=== PATIENT | female | born 1940 | race Caucasian/White ===

== ENCOUNTER 2019-02-21 11:35 | Inpatient (IN) ==
[2019-02-21 12:33] LABS: Basophils # (auto) 0.01 K/uL (0-0.2); Basophils % (auto) 0.2 %; Eosinophils # (auto) 0.07 K/uL (0-0.5); Eosinophils % (auto) 1.1 %; Hematocrit (blood only) 34.2 % (37-47); Hemoglobin 10.7 g/dL (12.0-16.0); Immature Granulocytes # (auto) 0.01 K/uL (0.00-0.02); Immature Granulocytes % (auto) 0.2 %; Lymphocytes # (auto) 1.97 K/uL (1.2-3.4); Lymphocytes % (auto) 30.8 %; Mean Corpuscular Hemoglobin 31.2 pg (25-34); Mean Corpuscular Hgb Conc 31.3 g/dL (32-36); Mean Corpuscular Volume 99.7 fL (80-100); Mean Platelet Volume 10.3 fL (7.4-10.4); Monocytes # (auto) 0.76 K/uL (0.11-0.59); Monocytes % (auto) 11.9 %; Neutrophils # (auto) 3.58 K/uL (1.4-6.5); Neutrophils % (auto) 55.8 %; Platelet Count 208 K/uL (130-400); RDW Coefficient of Variation 14.7 % (11.5-14.5); RDW Standard Deviation 53.3 fL (36.4-46.3); Red Blood Count 3.43 M/uL (4.2-5.4)
[2019-02-21 12:56] LABS: Alanine Aminotransferase 18 U/L (12-78); Albumin Globulin Ratio 0.8 (0.9-2); Albumin Level 3.1 gm/dl (3.4-5.0); Alkaline Phosphatase 98 U/L (45-117); Aspartate Aminotransferase 14 U/L (15-37); BUN Creatinine Ratio 26.8 (10-20); Bilirubin,Total 0.2 mg/dl (0.2-1); Blood Urea Nitrogen 45 mg/dl (7-18); Calcium 8.7 mg/dl (8.5-10.1); Carbon Dioxide 28 mmol/L (21-32); Chloride 103 mmol/L (98-107); Est GFR (African American) 33.9; Est GFR (Non-African American) 29.2; Glucose 142 mg/dl (70-99); Potassium 6.2 mmol/L (3.5-5.1); Sodium 134 mmol/L (136-145); Total Protein 7.1 gm/dl (6.4-8.2)
[2019-02-21] MEDS ORDERED: SODIUM CHLORIDE 0.9% 1000ML 1,000 ML IV SCH (13:11)
--- NOTE | 2019-02-21 13:49 | Emergency Department Note ---
History of Present Illness General Chief complaint: Leg Weakness, Bilateral Stated complaint: SWELLING AND PAIN IN BOTH LEGS Time Seen by Provider: 02/21/19 12:31 History of Present Illness Maximum Pain Intensity: 9 Home Medications Home Medications Medication Instructions Recorded Confirmed Type metformin 1,000 mg PO BID 07/27/18 02/21/19 History enalapril maleate 10 mg tablet 10 mg PO DAILY 09/21/18 02/21/19 History clopidogrel 75 mg tablet 75 mg PO DAILY 09/22/18 02/21/19 History omeprazole 20 mg delayed 20 mg PO DAILY PRN tab 09/22/18 02/21/19 History release,disintegrating tablet lisinopril 5 mg PO DAILY 10/27/18 02/21/19 History tramadol 50 mg PO Q4H PRN 10/27/18 02/21/19 History alprazolam 0.5 mg tablet,extended 0.5 mg PO HS 12/23/18 02/21/19 History release 24 hr quetiapine 25 mg tablet 25 mg PO HS 12/23/18 02/21/19 History rivastigmine tartrate 1.5 mg 1.5 mg PO BID 12/23/18 02/21/19 History capsule lidocaine 1 patch TOP DAILY #30 ea 01/28/19 02/21/19 Rx gabapentin 300 mg PO BID 02/21/19 02/21/19 History gabapentin 400 mg PO BID 02/21/19 02/21/19 History Allergies Allergy/AdvReac Type Severity Reaction Status Date / Time No Known Drug Allergies Allergy Unknown Verified 02/21/19 13:17 Past Med/Surg History Medical History (Updated 02/12/19 @ 00:04 by Carmina Liu) CVA (cerebral vascular accident) (Resolved) Diabetes Diabetic neuropathy (Chronic) GERD (gastroesophageal reflux disease) H/O: stroke (Resolved) Hyperlipemia Hypertension No pertinent family history Surgical History History of cholecystectomy History of hysterectomy History of lumbar surgery Social History Preferred Language: Liberian Communication Ability: Effective Visual Impairment: No Limitations Hearing Ability: Normal Feels Safe at Home: Yes Smoking Status: Never smoker Hx Alcohol Use: No Physical Exam Vital Signs Vital Signs - 24 hr 02/21/19 11:46 02/21/19 12:31 Temperature 36.9 C Temperature Source Oral Pulse Rate 54 L Pulse Rate [Apical] 54 L Pulse Rhythm [Apical] Regular Pulse Strength [Apical] Normal Respiratory Rate 16 16 Respiratory Effort / Characteristics Non-Labored Spontaneous Respiratory Depth Normal Respiratory Pattern Regular Blood Pressure 121/52 L Blood Pressure [Left Arm] 117/62 Blood Pressure Mean 75 Blood Pressure Mean [Left Arm] 80 Blood Pressure Position [Left Arm] Lying Pulse Oximetry 97 97 Oxygen Delivery Method Room Air Room Air Sepsis Recent Fever Within 48 Hours No Sepsis New/Unexplained Change in Mental Status No Sepsis Action Taken by Nursing No Action Required Course Administered Medications Sodium Chloride (Nss 1000ml) 1,000 mls @ 999 mls/hr IV .Q1H1M HARDIK Stop: 02/21/19 14:11 Last Admin: 02/21/19 13:21 Dose: 999 mls/hr Documented by: [id number] Medical Decision Making Laboratory Data Result diagrams: 02/21/19 12:25 02/21/19 12:25 Lab Results 02/21/19 02/21/19 Range/Units 12:25 12:25 WBC 6.40 (4.8-10.8) K/uL RBC 3.43 L (4.2-5.4) M/uL Hgb 10.7 L (12.0-16.0) g/dL Hct 34.2 L (37-47) % MCV 99.7 (80-100) fL MCH 31.2 (25-34) pg MCHC 31.3 L (32-36) g/dL RDW Std Deviation 53.3 H (36.4-46.3) fL RDW Coeff of Loy 14.7 H (11.5-14.5) % Plt Count 208 (130-400) K/uL MPV 10.3 (7.4-10.4) fL Immature Gran % (Auto) 0.2 % Neut % (Auto) 55.8 % Lymph % (Auto) 30.8 % [place] % (Auto) 11.9 % Eos % (Auto) 1.1 % Baso % (Auto) 0.2 % Immature Gran # (Auto) 0.01 (0.00-0.02) K/uL Neut # (Auto) 3.58 (1.4-6.5) K/uL Lymph # (Auto) 1.97 (1.2-3.4) K/uL [place] # (Auto) 0.76 H (0.11-0.59) K/uL Eos # (Auto) 0.07 (0-0.5) K/uL Baso # (Auto) 0.01 (0-0.2) K/uL Sodium 134 L (136-145) mmol/L Potassium 6.2 H* (3.5-5.1) mmol/L Chloride 103 (98-107) mmol/L Carbon Dioxide 28 (21-32) mmol/L Anion Gap 4.0 (3-11) BUN 45 H (7-18) mg/dl Creatinine 1.66 H (0.6-1.2) mg/dl Est Cr Clr Drug Dosing Not Reportable Est GFR ( Amer) 33.9 Est GFR (Non-Af Amer) 29.2 BUN/Creatinine Ratio 26.8 H (10-20) Glucose 142 H (70-99) mg/dl Calcium 8.7 (8.5-10.1) mg/dl Total Bilirubin 0.2 (0.2-1) mg/dl AST 14 L (15-37) U/L ALT 18 (12-78) U/L Alkaline Phosphatase 98 (45-117) U/L Total Protein 7.1 (6.4-8.2) gm/dl Albumin 3.1 L (3.4-5.0) gm/dl Globulin 4.0 (2.5-4.0) gm/dl Albumin/Globulin Ratio 0.8 L (0.9-2) Discharge Plan Visit Data Chief Complaint: Leg Weakness, Bilateral Stated Complaint: SWELLING AND PAIN IN BOTH LEGS ED Provider: Mitchel Anthony ED Midlevel Provider: Lowell Love Prescriptions Prescriptions: No Action alprazolam [Xanax XR] 0.5 mg tablet extended release 24 hr 0.5 mg PO HS RF: 0 quetiapine [Seroquel] 25 mg tablet 25 mg PO HS RF: 0 rivastigmine tartrate 1.5 mg capsule 1.5 mg PO BID RF: 0 enalapril maleate 10 mg tablet 10 mg PO DAILY RF: 0 omeprazole 20 mg tablet,disintegrat, delay rel 20 mg PO DAILY PRN (Reason: Stomach Upset) RF: 0 clopidogrel [Plavix] 75 mg tablet 75 mg PO DAILY RF: 0 lisinopril 5 mg Tablet 5 mg PO DAILY RF: 0 tramadol 50 mg Tablet 50 mg PO Q4H PRN (Reason: Pain) RF: 0 metformin 500 mg tablet extended release 24 hr 1,000 mg PO BID RF: 0 lidocaine 5 % adhesive patch,medicated 1 patch TOP DAILY Qty: 30 RF: 0 gabapentin 400 mg capsule 400 mg PO BID RF: 0 gabapentin 300 mg capsule 300 mg PO BID RF: 0
--- NOTE | 2019-02-21 13:55 | Emergency Department Note ---
ED Visit Note The patient presents with a chief complaint of lower extremity discomfort as well as some pedal edema. Most of the symptoms are chronic, according to the daughter. The patient had blood work today that revealed some acute renal insufficiency and hyperkalemia. Her EKG did not reveal any T wave changes although she does have some T wave flattening. This could be related to her hyperkalemia. The patient was treated with a liter of normal saline IV. She was given some oral Kayexalate. I have personally seen and evaluated the patient with the physician visitor services assistant. I agree with the diagnostic/management decisions and have personally been involved in these decisions and agree with the diagnosis. .
[2019-02-21] MEDS ORDERED: SODIUM POLYSTYRENE SULFONATE 15G/60ML SUSP PO STA (13:56)
--- NOTE | 2019-02-21 14:32 | History & Physical Report ---
Date of Service February 21, 2019 Assessment & Plan (1) Hyperkalemia: Likely related to recent constipation in the setting of meloxicam use Holding meloxicam Kayexalate in the ED Repeat labs in AM EKG neg for changes Monitor on tele Likely the cause of LE shaking, possibly contributing to pain (2) ARF (acute renal failure): Uncertain etiology Possibly also related to meloxicam use in the setting of constipation Holding nephrotoxic agents Baseline cr 1.2, 1.6 on admission Monitor with gentle IVF Renal US pending Reports no urination issues (3) Weakness: Likely related to hyperkalemia in the setting of deconditioning PT/OT pending Recent [facility] stays x2 Falls x2 in 24 hrs prior to admission (4) Swelling of lower extremity: Improved today with recent use of compression stockings Monitor (5) Diabetes: Holding metformin for renal function Pt takes SSI PRN at home SSI PRN A1c pending (6) Diabetic neuropathy: Gabapentin, continue Recent increase last month (7) Hyperlipemia: Holding statin for renal function (8) Hypertension: continue home meds (9) GERD (gastroesophageal reflux disease): continue home meds (10) H/O: stroke: Plavix, continue (11) DVT prophylaxis: Heparin for DVT proph History of Present Illness Primary Care Provider: Francisco Olmstead, DO 78 y/o F c/o LE weakness, swelling, and pain. This has been an ongoing issue for pt for the last several months. She has been to [facility] twice and does well there. She is d/c'd to home and after about 2 weeks her issues return. Granddaughter states that the LE issues were worse the last 3 days. She put on compression stockings yesterday and the swelling is better. Pt states that she has been very shaky the last few days and cannot walk well. She fell twice in the last 24 hours. Pt has ongoing home PT services since her last d/c from [facility], which was on 02/07. Pt has been having issues with worsening constipation. Since her d/c from [facility] on 02/07, she has only had one bowel movement. Granddaughter has been giving her MOM, ducolax, and prunes, but this does not improve. She has abd fullness due to this. She has no issues with urination and feels she is urinating at a regular amount. Pt states she has been having occasional substernal chest pains over the last few days. This is new for her. No radiation. She is mostly at rest due to her LE and back pain and this happens at rest generally. She does not take anything for this. Pt was put on meloxicam about 2 months ago for back pain. Granddaughter states that this is not helping her much despite daily use. The prescription will run out in 2 days and she was not planning to refill it. Pt denies fever, SOB, n/v. Pt was not having diarrhea prior to coming to the ED, however she was given kayexalate in the ED and is now having loose stools. Granddaughter states that pt's last name is Ney. She states that this is what all of her medical records are listed under, including her insurance card. 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 In [place], your last name is your maiden name + your mother's name, and this is apparently how DL are issued despite your legal last name. Daughter states she explained this to the triage secretary receptionist, however pt's name was changed to match her DL in the system. Pt and granddaughter would like this changed back to Ney as all of her health records at other facilities are under that name and she has not changed her name. Allergies Allergy/AdvReac Type Severity Reaction Status Date / Time No Known Drug Allergies Allergy Unknown Verified 02/21/19 13:17 Home Medications Home Medications Medication Instructions Recorded Confirmed Type metformin 1,000 mg PO BID 07/27/18 02/21/19 History enalapril maleate 10 mg tablet 10 mg PO DAILY 09/21/18 02/21/19 History clopidogrel 75 mg tablet 75 mg PO DAILY 09/22/18 02/21/19 History omeprazole 20 mg delayed 20 mg PO DAILY PRN tab 09/22/18 02/21/19 History release,disintegrating tablet lisinopril 5 mg PO DAILY 10/27/18 02/21/19 History tramadol 50 mg PO Q4H PRN 10/27/18 02/21/19 History alprazolam 0.5 mg tablet,extended 0.5 mg PO HS 12/23/18 02/21/19 History release 24 hr quetiapine 25 mg tablet 25 mg PO HS 12/23/18 02/21/19 History rivastigmine tartrate 1.5 mg 1.5 mg PO BID 12/23/18 02/21/19 History capsule lidocaine 1 patch TOP DAILY #30 ea 01/28/19 02/21/19 Rx gabapentin 300 mg PO BID 02/21/19 02/21/19 History gabapentin 400 mg PO BID 02/21/19 02/21/19 History Past Med/Surg History Medical History CVA (cerebral vascular accident) (Resolved) Diabetes Diabetic neuropathy (Chronic) GERD (gastroesophageal reflux disease) H/O: stroke (Resolved) Hyperlipemia Hypertension No pertinent family history Surgical History History of cholecystectomy History of hysterectomy History of lumbar surgery Family History Father Cancer unknown type Mother Diabetes Social History (Updated 02/21/19 @ 14:36 by Lindsay Lombardo DO) Preferred Language: Yoruba Communication Ability: Effective Visual Impairment: No Limitations Hearing Ability: Normal Feels Safe at Home: Yes Smoking Status: Never smoker Hx Alcohol Use: No Hx Substance Use: No Review of Systems Review of Systems: Pertinent positives and negatives reviewed in HPI--all others negative Physical Exam Constitutional: WD/WN, vitals as above Eyes: normal visual wagner by confrontation and + anicteric sclerae Neck: normal visual inspection and trachea midline Respiratory: normal respiratory effort, lungs clear to auscultation Cardiovascular: Rate/Rhythm: regular rate and regular rhythm Gastrointestinal (Abdomen): Inspection/Auscultation: + abdomen distended Percussion/Palpation: abdomen soft; abdomen nontender Musculoskeletal: Head/Neck/Chest: normocephalic and head atraumatic negative for edema, peripheral pulses intact Skin: no rashes, warm and dry Neurologic: awake; not confused Speech / Cognition: normal speech Psychiatric: A+Ox3, euthymic affect Results & Data Vital Signs (Past 12 Hours) Vital Signs Temp Pulse Pulse Resp BP BP Pulse Ox 02/21/19 14:00 65 16 103/60 97 02/21/19 13:30 62 16 127/78 97 02/21/19 13:00 52 L 16 134/68 97 02/21/19 12:31 54 L 16 117/62 97 02/21/19 11:46 36.9 C 54 L 16 121/[address] L spine: done 01/28/19 1. Significant adjacent level degenerative change at L3-4 with moderate to js re spinal canal narrowing and bilateral neural foraminal narrowing. 2. Posterior lumbar fusion from L4 to S1 with laminectomy defects and interbody spacers. 3. No acute osseous injury of the lumbar spine. ECG Rhythm: normal sinus Code Status & VTE Plan Code Status Full code VTE Prophylaxis Plan VTE Prophylaxis will be ordered: Yes PG Care Time/CCT Total # of Minutes Spent Total Time Spent with Patient: Total time spent is greater than 50% in coordination of care (as documented) at patient's floor/unit and/or counseling patient:
[2019-02-21 14:57] LABS: Appearance Urine Clear (Clear); Bacteria Urine Automated Negative (Negative); Bilirubin Urine Negative (Negative); Blood Urine Negative (Negative); Color Urine Yellow; Epithelial Cell Urine Auto 20-30 /lpf (0-5); Glucose Urine UA Negative (Negative); Ketones Urine Negative (Negative); Leukocyte Esterase Urine Trace (Negative); Nitrite Urine Negative (Negative); Protein Urine Negative (Negative); RBC Urine Automated 0-4 /hpf (0-4); Specific Gravity Urine 1.013 (1.000-1.030); Urobilinogen Urine Negative (Negative); pH Urine 7.5 (4.5-7.5)
--- NOTE | 2019-02-21 15:30 | Emergency Department Note ---
History of Present Illness General Chief complaint: Leg Weakness, Bilateral Stated complaint: SWELLING AND PAIN IN BOTH LEGS Time Seen by Provider: 02/21/19 12:31 Source: patient and family Mode of arrival: wheelchair Limitations: no limitations History of Present Illness Maximum Pain Intensity: 9 This 78-year-old female presents with her granddaughter, for evaluation of weakness, bilateral leg pain, and bilateral lower leg edema. Patient states she has chronic back pain that radiates to both legs. She states she did fall backwards onto her buttock and low back yesterday. There was no loss of conscious. She denies striking her head. She has had increasing pain in the lower legs bilaterally over the last several days. No loss of bowel or bladder control. No numbness or tingling. Her daughter is noted significant swelling in the lower legs and feet in the evenings. She was wearing compression stoc kings yesterday which seemed to help. Her swelling is still present but is improved compared to yesterday. Patient complains of overall generalized weakness. She feels it is difficult to walk. She is frustrated at her lack of physical strength and stamina. No chest pain or shortness of breath. She states she has been using Tylenol and tramadol without any relief. She states she cannot sleep at night because of back pain. No additional complaints at this time. She has been at [facility] twice over the last several months with improvement each time. She seems to decondition when not being there, and then returns to the ED. Patient was seen here 3 weeks ago for similar low back pain radiating into the legs. She has a history of lumbar back surgery with fusion from L4-S1 by Dr. Morrell several years ago. She has not been back recently to see him. CT scan of the lumbar spine was obtained at that time. Home Medications Home Medications Medication Instructions Recorded Confirmed Type metformin 1,000 mg PO BID 07/27/18 02/21/19 History enalapril maleate 10 mg tablet 10 mg PO DAILY 09/21/18 02/21/19 History clopidogrel 75 mg tablet 75 mg PO DAILY 09/22/18 02/21/19 History omeprazole 20 mg delayed 20 mg PO DAILY PRN tab 09/22/18 02/21/19 History release,disintegrating tablet lisinopril 5 mg PO DAILY 09/10/19 01/05/20 History tramadol 50 mg PO Q4H PRN 10/27/18 02/21/19 History alprazolam 0.5 mg tablet,extended 0.5 mg PO HS 12/23/18 02/21/19 History release 24 hr quetiapine 25 mg tablet 25 mg PO HS 12/23/18 02/21/19 History rivastigmine tartrate 1.5 mg 1.5 mg PO BID 12/23/18 02/21/19 History capsule lidocaine 1 patch TOP DAILY #30 ea 01/28/19 02/21/19 Rx gabapentin 300 mg PO BID 02/21/19 02/21/19 History gabapentin 400 mg PO BID 02/21/19 02/21/19 History Allergies Allergy/AdvReac Type Severity Reaction Status Date / Time No Known Drug Allergies Allergy Unknown Verified 02/21/19 13:17 Past Med/Surg History Medical History CVA (cerebral vascular accident) (Resolved) Diabetes Diabetic neuropathy (Chronic) GERD (gastroesophageal reflux disease) H/O: stroke (Resolved) Hyperlipemia Hypertension No pertinent family history Surgical History History of cholecystectomy History of hysterectomy History of lumbar surgery Family History Father Cancer unknown type Mother Diabetes Social History Preferred Language: Romansh Communication Ability: Effective Visual Impairment: No Limitations Hearing Ability: Normal State Pilot Required: No Beliefs That Will Affect Care: None Current Living Situation: Family Current Living Situation Comment: lives with daughter and granddaughter Other Information That Helps Us Care for You: No Feels Safe at Home: Yes Safety Concerns: Feels Safe At This Time Smoking Status: Current some day smoker Tobacco Type: cigarettes ; Cigarettes Per Day: 10 ; Smoking End Date: 8 months ago per patient ; Second Hand Exposure: No ; Tobacco Cessation Education Requested by Patient: No Hx Alcohol Use: No Hx Substance Use: No Review of Systems A total of 10 systems reviewed and were otherwise negative Physical Exam Vital Signs Vital Signs - 24 hr 02/21/19 11:46 02/21/19 12:31 02/21/19 13:00 Temperature 36.9 C Temperature Source Oral Pulse Rate 54 L Pulse Rate [Apical] 54 L 52 L Pulse Rhythm [Apical] Regular Regular Pulse Strength [Apical] Normal Normal Respiratory Rate 16 16 16 Respiratory Effort / Characteristics Non-Labored Spontaneous Non-Labored Spontaneous Respiratory Depth Normal Normal Respiratory Pattern Regular Regular Blood Pressure 121/52 L Blood Pressure [Left Arm] 117/62 134/68 Blood Pressure Mean 75 Blood Pressure Mean [Left Arm] 80 90 Blood Pressure Position [Left Arm] Lying Lying Pulse Oximetry 97 97 97 Oxygen Delivery Method Room Air Room Air Room Air Sepsis Recent Fever Within 48 Hours No Sepsis New/Unexplained Change in Mental Status No Sepsis Action Taken by Nursing No Action Required 02/21/19 13:30 02/21/19 14:00 02/21/19 14:30 Temperature Temperature Source Pulse Rate Pulse Rate [Apical] 62 65 65 Pulse Rhythm [Apical] Regular Regular Regular Pulse Strength [Apical] Normal Normal Normal Respiratory Rate 16 16 16 Respiratory Effort / Characteristics Non-Labored Spontaneous Non-Labored Spontaneous Non-Labored Spontaneous Respiratory Depth Normal Normal Normal Respiratory Pattern Regular Regular Regular Blood Pressure Blood Pressure [Left Arm] 127/78 103/60 106/94 Blood Pressure Mean Blood Pressure Mean [Left Arm] 94 74 98 Blood Pressure Position [Left Arm] Lying Lying Lying Pulse Oximetry 97 97 97 Oxygen Delivery Method Room Air Room Air Room Air Sepsis Recent Fever Within 48 Hours Sepsis New/Unexplained Change in Mental Status Sepsis Action Taken by Nursing 02/21/19 15:01 02/21/19 15:50 Temperature Temperature Source Pulse Rate Pulse Rate [Apical] 58 L 52 L Pulse Rhythm [Apical] Regular Regular Pulse Strength [Apical] Normal Normal Respiratory Rate 16 16 Respiratory Effort / Characteristics Non-Labored Spontaneous Non-Labored Spontaneous Respiratory Depth Normal Normal Respiratory Pattern Regular Regular Blood Pressure Blood Pressure [Left Arm] 116/80 142/67 H Blood Pressure Mean Blood Pressure Mean [Left Arm] 92 92 Blood Pressure Position [Left Arm] Lying Lying Pulse Oximetry 94 92 Oxygen Delivery Method Room Air Room Air Sepsis Recent Fever Within 48 Hours Sepsis New/Unexplained Change in Mental Status Sepsis Action Taken by Nursing General: Well-developed, well-nourished, elderly female, in no acute distress. Laying on the bed. Alert and oriented. No obvious discomfort. Skin: Warm and dry with fair turgor. No rashes or lesions. No ecchymosis. She has a minor petechial type skin presentation around the ankles and lower shins. Very mild pitting edema in the pretibial area of the shins. It is closer to 2+ around the ankles. 1+ edema over the dorsum of the feet. Mild venous stasis changes are present bilaterally. The patient is not diaphoretic. No luli sions. Heart: Heart RRR. No MGR. Peripheral pulses are 2+. Lungs: Lungs are clear to auscultation. No crackles rhonchi or wheezing. Good air movement. The patient is able to take a deep breath. Abdomen: Abdomen was inspected, auscultated, and palpated. Obese. Bowel sounds present x 4. Soft, nontender to palpation. No hepato-splenomegaly. No masses noted. No rebound. Musculoskeletal: Patient has supple motion of her shoulders, elbows, and wrists. Supple motion of both hips. There is no intra-articular effusion in either knee. Obvious arthritic changes bilaterally. Good logrolling of both hips without discomfort. She has focal discomfort with palpation over the medial and lateral joint lines of both knees. Supple hip flexion and knee flexion bilaterally. Intact motor function of both ankles and toes. He describes a generalized soreness with palpation over the tibia in both lower extremities. No palpable crepitus. No deformity. Strength is 5/5 resisted plantarflexion and dorsiflexion of the feet as well as flexion of the knees. Patient is able to perform straight leg raise bilaterally. Stable collateral ligaments. Neurologic: Gross sensation is intact across both lower extremities by soft touch. Peripheral pulses are 2+ bilaterally. She has 1+ pitting edema around the ankles and dorsum of the feet. No significant edema present in the pretibial area in either leg. Course Administered Medications Discontinued Medications Sodium Chloride (Nss 1000ml) 1,000 mls @ 999 mls/hr IV .Q1H1M HARDIK Stop: 02/21/19 14:11 Last Infusion: 02/21/19 15:06 Dose: 0 mls/hr Documented by: [id number] Admin: 02/21/19 13:21 Dose: 999 mls/hr Documented by: [id number] Sodium Polystyrene Sulfonate (Kayexalate) 15 gm PO NOW STA Stop: 02/21/19 13:57 Last Admin: 02/21/19 14:05 Dose: 15 gm Documented by: [id number] Medical Decision Making Differential Diagnosis Lumbar disc disease with radiculopathy, spinal fracture, electrolyte abnormality, anemia, congestive heart failure worsening renal function Medical Records Attestation: I reviewed the patient's medical records. Home Medications Current Medication List: was personally reviewed by me Laboratory Data Attestation: I reviewed the patient's lab results. CBC, chemistry panel, and UA were obtained. CBC shows mild anemia with an H&H of 10.7 and 34.2. Normal platelets. Sodium mildly low at 134. Potassium elevated at 6.2. BUN and creatinine are slightly worse than her last visit 3 weeks ago. BUN 45 creatinine 1.66. Urine is clear yellow with trace leukocyte Estrace. No blood. Negative bacteria. Result diagrams: 02/21/19 12:25 02/21/19 12:25 Lab Results 02/21/19 02/21/19 02/21/19 Range/Units 12:25 12:25 14:44 WBC 6.40 (4.8-10.8) K/uL RBC 3.43 L (4.2-5.4) M/uL Hgb 10.7 L (12.0-16.0) g/dL Hct 34.2 L (37-47) % MCV 99.7 (80-100) fL MCH 31.2 (25-34) pg MCHC 31.3 L (32-36) g/dL RDW Std Deviation 53.3 H (36.4-46.3) fL RDW Coeff of Loy 14.7 H (11.5-14.5) % Plt Count 208 (130-400) K/uL MPV 10.3 (7.4-10.4) fL Immature Gran % (Auto) 0.2 % Neut % (Auto) 55.8 % Lymph % (Auto) 30.8 % Weber % (Auto) 11.9 % Eos % (Auto) 1.1 % Baso % (Auto) 0.2 % Immature Gran # (Auto) 0.01 (0.00-0.02) K/uL Neut # (Auto) 3.58 (1.4-6.5) K/uL Lymph # (Auto) 1.97 (1.2-3.4) K/uL Weber # (Auto) 0.76 H (0.11-0.59) K/uL Eos # (Auto) 0.07 (0-0.5) K/uL Baso # (Auto) 0.01 (0-0.2) K/uL Sodium 134 L (136-145) mmol/L Potassium 6.2 H* (3.5-5.1) mmol/L Chloride 103 (98-107) mmol/L Carbon Dioxide 28 (21-32) mmol/L Anion Gap 4.0 (3-11) BUN 45 H (7-18) mg/dl Creatinine 1.66 H (0.6-1.2) mg/dl Est Cr Clr Drug Dosing Not Reportable Est GFR ( Amer) 33.9 Est GFR (Non-Af Amer) 29.2 BUN/Creatinine Ratio 26.8 H (10-20) Glucose 142 H (70-99) mg/dl Calcium 8.7 (8.5-10.1) mg/dl Total Bilirubin 0.2 (0.2-1) mg/dl AST 14 L (15-37) U/L ALT 18 (12-78) U/L Alkaline Phosphatase 98 (45-117) U/L Total Protein 7.1 (6.4-8.2) gm/dl Albumin 3.1 L (3.4-5.0) gm/dl Globulin 4.0 (2.5-4.0) gm/dl Albumin/Globulin Ratio 0.8 L (0.9-2) Urine Color Yellow Urine Appearance Clear (Clear) Urine pH 7.5 (4.5-7.5) Ur Specific Kyle 1.013 (1.000-1.030) Urine Protein Negative (Negative) Urine Glucose (UA) Negative (Negative) Urine Ketones Negative (Negative) Urine Blood Negative (Negative) Urine Nitrite Negative (Negative) Urine Bilirubin Negative (Negative) Urine Urobilinogen Negative (Negative) Ur Leukocyte Esterase Trace H (Negative) Urine WBC (Auto) 1-5 (0-5) /hpf Urine RBC (Auto) 0-4 (0-4) /hpf U Hyaline Cast (Auto) 1-5 (0-5) /lpf U Epithel Cells (Auto) 20-30 H (0-5) /lpf Urine Bacteria (Auto) Negative (Negative) ECG Data Attestation: I personally reviewed and interpreted this ECG as follows: Additional Comments: EKG obtained today was reviewed with Dr. Anthony. It shows junctional rhythm with a rate of 60. No acute ST or T wave changes. Blood Pressure Blood Pressure Findings: Normal blood pressure MDM Narrative Patient was evaluated in room C1. Conservative care measures were discussed. IV was established. Labs were obtained. She was found to have a critically high potassium at 6.2. Because of this, EKG was obtained. It shows a junctional rhythm with a rate of 60. No acute ST or T wave changes are present. This was reviewed with Dr. Anthony. Renal function was also found to be slightly worse than her last visit 3 weeks ago. Patient was hydrated with 1 L normal sterile saline IV bolus. She was also given Kayexalate 15 mg. Given her deconditioning, bilateral radiculopathies, hyperkalemia, and worsening renal function, it was thought best to admit her to the hospital for further management. This was also discussed with Dr. Umanzor. [facility] hospitalist Dr. Lombardo was consulted. Please see her dictation for final management. Patient remained stable while in the department. She has an appointment to see her PCP Dr. Olmstead on Friday, and would like to keep that appointment. She will need to discuss this with the hospitalist. I do think the peripheral edema can be managed with her compression stockings and elevatio n. Potassium will need to be monitored closely. I suspect that this will improve her lower leg pain and weakness. Patient was seen in conjunction with Dr. Anthony, who also evaluated the patient and concurred with today's diagnosis and treatment plan. Impression & Plan Hyperkalemia, Weakness Discharge Plan Visit Data Chief Complaint: Leg Weakness, Bilateral Stated Complaint: SWELLING AND PAIN IN BOTH LEGS ED Provider: Mitchel Anthony ED Midlevel Provider: Lowell Love Discharge Problem: Hyperkalemia, Weakness Forms Stand Alone Forms: My [facility] Prescriptions Prescriptions: No Action alprazolam [Xanax XR] 0.5 mg tablet extended release 24 hr 0.5 mg PO HS RF: 0 quetiapine [Seroquel] 25 mg tablet 25 mg PO HS RF: 0 rivastigmine tartrate 1.5 mg capsule 1.5 mg PO BID RF: 0 enalapril maleate 10 mg tablet 10 mg PO DAILY RF: 0 omeprazole 20 mg tablet,disintegrat, delay rel 20 mg PO DAILY PRN (Reason: Stomach Upset) RF: 0 clopidogrel [Plavix] 75 mg tablet 75 mg PO DAILY RF: 0 lisinopril 5 mg Tablet 5 mg PO DAILY RF: 0 tramadol 50 mg Tablet 50 mg PO Q4H PRN (Reason: Pain) RF: 0 metformin 500 mg tablet extended release 24 hr 1,000 mg PO BID RF: 0 lidocaine 5 % adhesive patch,medicated 1 patch TOP DAILY Qty: 30 RF: 0 gabapentin 400 mg capsule 400 mg PO BID RF: 0 gabapentin 300 mg capsule 300 mg PO BID RF: 0 Referrals Referrals: Francisco Olmstead, [Primary Care Provider] -
[2019-02-21] MEDS ORDERED: GLUCAGON FOR INJ 1 MG VIAL SQ PRN (16:24)
[2019-02-21] MEDS ORDERED: ONDANSETRON INJ 2 MG/ML 2 ML VIAL IV PRN (16:24)
[2019-02-21] MEDS ORDERED: MAGNESIUM HYDROXIDE SUSP 30 ML UDC PO PRN (16:24)
[2019-02-21] MEDS ORDERED: CARBOHYDRATES FOR HYPOGLYCEMIA PO PRN (16:24)
[2019-02-21] MEDS ORDERED: PANTOprazole 40 MG TAB PO PRN (16:24)
[2019-02-21] MEDS ORDERED: DEXTROSE 50% 50 ML SYRINGE IV PRN (16:24)
[2019-02-21] MEDS ORDERED: GLUCOSE 10 TABS/TUBE PO PRN (16:24)
[2019-02-21] MEDS ORDERED: ACETAMINOPHEN 325 MG TAB PO PRN (16:24)
[2019-02-21] MEDS ORDERED: GLUCOSE 40% GEL 15 GM TUBE PO PRN (16:24)
[2019-02-21] MEDS: SODIUM CHLORIDE 0.45 % 1,000 ML IV SCH (16:46)
[2019-02-21] MEDS: INSULIN ASPART 100 UNITS/ML 3 ML PEN SC SCH ×2 (18:05→20:39)
[2019-02-21] MEDS: TRAMADOL HCL 50 MG TABLET PO PRN (19:59)
[2019-02-21] MEDS: RIVASTIGMINE TARTRATE 1.5 MG CAP PO SCH (20:41)
[2019-02-21] MEDS: GABAPENTIN 300 MG CAP PO SCH (20:42)
[2019-02-21] MEDS: QUETIAPINE FUMARATE 25 MG TABLET PO SCH (20:42)
[2019-02-21] MEDS: GABAPENTIN 400 MG CAP PO SCH (20:42)
[2019-02-21] MEDS: HEPARIN SOD 5,000 UNIT/0.5 ML VIAL SQ SCH (20:44)
[2019-02-21] MEDS: ALPRAZolam 0.5 MG TABLET PO SCH (20:44)
[2019-02-22] MEDS: HEPARIN SOD 5,000 UNIT/0.5 ML VIAL SQ SCH ×3 (06:00→20:57)
--- NOTE | 2019-02-22 08:00 | Ultrasound Report ---
RENAL ULTRASOUND HISTORY: Renal failure. COMPARISON: Abdomen and pelvis CT 07/13/2018. FINDINGS: Right kidney: 8 cm in length. No hydronephrosis. Mild cortical thinning/lobulation. Normal corticomed ullary differentiation. Left kidney: 8 cm in length. No hydronephrosis. Mild cortical thinning/lobulation. Normal corticomedu llary differentiation. Bladder: No bladder wall thickening. The bilateral ureteral jets were identified. IMPRESSION: Mild bilateral cortical thinning/lobulation. No hydronephrosis. ACT 112: Negative or not required by law. Electronically signed by: Roberth Glynn M.D. 02/22/2019 7:59 AM
[2019-02-22 08:18] LABS: Estimated Average Glucose 220 mg/dl; Hemoglobin A1C 9.3 % (4.5-5.6)
[2019-02-22] MEDS: LIDOCAINE 5% 1 PATCH TD SCH (08:19)
[2019-02-22 08:20] LABS: BUN Creatinine Ratio 25.2 (10-20); Est GFR (African American) 42.7; Est GFR (Non-African American) 36.9; Phosphorus 3.6 mg/dl (2.5-4.9); Potassium 4.7 mmol/L (3.5-5.1)
[2019-02-22] MEDS: lisinopriL 5 MG TAB PO SCH (08:21)
[2019-02-22] MEDS: INSULIN ASPART 100 UNITS/ML 3 ML PEN SC SCH ×4 (08:21→20:56)
[2019-02-22] MEDS: GABAPENTIN 300 MG CAP PO SCH ×2 (08:21→20:55)
[2019-02-22] MEDS: CLOPIDOGREL BISULFATE 75 MG TAB PO SCH (08:21)
[2019-02-22] MEDS: GABAPENTIN 400 MG CAP PO SCH ×2 (08:22→20:55)
[2019-02-22] MEDS: RIVASTIGMINE TARTRATE 1.5 MG CAP PO SCH ×2 (08:22→20:55)
[2019-02-22] MEDS ORDERED: ENALAPRIL MALEATE 10 MG TAB PO SCH (09:00)
[2019-02-22] MEDS: TRAMADOL HCL 50 MG TABLET PO PRN ×2 (10:55→18:36)
[2019-02-22] MEDS: SODIUM CHLORIDE 0.45 % 1,000 ML IV SCH (13:42)
--- NOTE | 2019-02-22 14:44 | Electrocardiogram Report ---
Test Reason : Blood Pressure : / mmHG Vent. Rate : 060 BPM Atrial Rate : 416 BPM P-R Int : 000 ms QRS Dur : 074 ms QT Int : 448 ms P-R-T Axes : 000 079 043 degrees QTc Int : 448 ms Junctional rhythm Abnormal ECG When compared with ECG of 13-JUL-2018 09:45, Junctional rhythm has replaced Sinus rhythm Left posterior fascicular block is no longer Present Nonspecific T wave abnormality no longer evident in Inferior leads Confirmed by Nathaniel Shane ([id number]) on 02/22/2019 2:44:00 PM Referred By: REFERRED SELF Confirmed By:Nathaniel Shane
--- NOTE | 2019-02-22 15:12 | Electrocardiogram Report ---
Test Reason : Blood Pressure : / mmHG Vent. Rate : 070 BPM Atrial Rate : 070 BPM P-R Int : 160 ms QRS Dur : 076 ms QT Int : 414 ms P-R-T Axes : 058 064 021 degrees QTc Int : 447 ms Sinus rhythm with Premature atrial complexes Otherwise normal ECG When compared with ECG of 21-FEB-2019 13:07, (unconfirmed) Sinus rhythm has replaced Junctional rhythm Confirmed by Nathaniel Shane ([id number]) on 02/22/2019 3:11:48 PM Referred By: REFERRED SELF Confirmed By:Nathaniel Shane
--- NOTE | 2019-02-22 18:09 | Hospitalist Progress Note ---
Date of Service February 22, 2019 Assessment & Plan (1) Hyperkalemia: Likely related to recent constipation in the setting of meloxicam use Holding meloxicam Kayexalate in the ED Repeat labs K is WNL on 02/22 EKG neg for changes Monitor on tele Likely the cause of LE shaking, possibly contributing to pain (2) ARF (acute renal failure): Uncertain etiology Possibly also related to meloxicam use in the setting of constipation Holding nephrotoxic agents Baseline cr 1.2, 1.6 on admission and improved s/p gentle IVF Renal US neg Now with L flank pain with urination, UA pending (3) Weakness: Likely related to hyperkalemia in the setting of deconditioning PT/OT recs for SNF Recent [facility] stays x2 [place] x2 in 24 hrs prior to admission (4) Swelling of lower extremity: Improved 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 She continues to have LE pain. She has pain to her L flank today that is worse with urination. This is new. Her LE swelling is improved. She did eat without issue. Pt denies fever, SOB, chest pain, abd pain, n/v. She is no longer having diarrhea s/p kayexalate but has not had a bowel movement yet today. Spoke further with granddaughter today, primary caregiver. [place] and plans were for her to live with granddaughter's cousin. Cousin "had a breakdown" and pt could not stay with her any longer, so she moved in with Yazmin. "I was not able to prepare for her to move in at all. It just happened." Yazmin currently lives in a town home which she rents and cannot modify. Pt cannot navigate stairs and is limited to downstairs only, which has only a 1/2 bath. 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 Also living in the home are Yazmin's parents who have limited mobility due to MSK issues also. They stay upstairs most of the day and are not able to assist pt due to their own MSK issues. Yazmin's brother has mental issues and is living with her also. He has two daughters who live with their mother, but are in the home for a few hours af ter school daily. Yazmin also has a son living with her. Jose Angel is and her (in his 80s), was her primary caregiver when she lived in [place]. He attempted relocation to live with his son in [place], however this did not work out and he is back in [place]. Pt has no plans to return to [place]. Her is planning to move here at some point when able. Yazmin feels that she is really struggling to take care of all of these people who are dependent on her. She in not able to modify her townhouse given she is renting, so handicap access will not be available for pt. Yazmin states pt is very social and did enjoy being at rehab once she got there due to activities and interaction. She comes home and is able to ambulate better for about 2-3 days, then starts to decline again. Home PT is 2x/week. Review of Systems Review of Systems: Pertinent positives and negatives reviewed in HPI--all others negative Physical Exam Constitutional: WD/WN, vitals as above Eyes: normal visual wagner by confrontation and + anicteric sclerae Neck: normal visual inspection and trachea midline Respiratory: normal respiratory effort, lungs clear to auscultation Cardiovascular: Rate/Rhythm: regular rate and regular rhythm Gastrointestinal (Abdomen): Inspection/Auscultation: + abdomen distended Percussion/Palpation: abdomen soft; abdomen nontender Musculoskeletal: Head/Neck/Chest: normocephalic and head atraumatic neg LE edema Skin: no rashes, warm and dry Neurologic: awake; not confused Speech / Cognition: normal speech Psychiatric: A+Ox3, euthymic affect Results & Data Vital Signs (Past 12 Hours) Vital Signs Temp Pulse Pulse Resp BP BP Pulse Ox 01/06/20 16:09 36.6 C 54 L 16 115/65 100 02/22/19 16:08 67 02/22/19 11:49 36.5 C 64 18 152/80 H 98 02/22/19 10:38 78 02/22/19 08:07 36.7 C 71 18 154/75 H 96 PG Care Time/CCT Total # of Minutes Spent Total Time Spent with Patient: Total time spent is greater than 50% in coordination of care (as documented) at patient's floor/unit and/or counseling patient:
[2019-02-22] MEDS: MAGNESIUM HYDROXIDE SUSP 30 ML UDC PO SCH (18:40)
[2019-02-22] MEDS: SENNA 8.6 MG TAB PO SCH (18:40)
[2019-02-22 19:41] LABS: Appearance Urine Clear (Clear); Bilirubin Urine Negative (Negative); Blood Urine Negative (Negative); Color Urine Yellow; Glucose Urine UA 2+ (Negative); Ketones Urine Negative (Negative); Leukocyte Esterase Urine Negative (Negative); Nitrite Urine Negative (Negative); Protein Urine Negative (Negative); Specific Gravity Urine 1.009 (1.000-1.030); Urobilinogen Urine Negative (Negative)
[2019-02-22] MEDS: QUETIAPINE FUMARATE 25 MG TABLET PO SCH (20:57)
[2019-02-22] MEDS: ALPRAZolam 0.5 MG TABLET PO SCH (21:06)
[2019-02-23] MEDS: TRAMADOL HCL 50 MG TABLET PO PRN ×2 (01:41→14:21)
[2019-02-23] MEDS: HEPARIN SOD 5,000 UNIT/0.5 ML VIAL SQ SCH ×2 (06:20→14:16)
[2019-02-23] MEDS: RIVASTIGMINE TARTRATE 1.5 MG CAP PO SCH (08:36)
[2019-02-23] MEDS: GABAPENTIN 300 MG CAP PO SCH (08:36)
[2019-02-23] MEDS: LIDOCAINE 5% 1 PATCH TD SCH (08:37)
[2019-02-23] MEDS: lisinopriL 5 MG TAB PO SCH (08:38)
[2019-02-23] MEDS: MAGNESIUM HYDROXIDE SUSP 30 ML UDC PO SCH (08:38)
[2019-02-23] MEDS: GABAPENTIN 400 MG CAP PO SCH (08:39)
[2019-02-23] MEDS: CLOPIDOGREL BISULFATE 75 MG TAB PO SCH (08:39)
[2019-02-23] MEDS: SENNA 8.6 MG TAB PO SCH (08:39)
[2019-02-23] MEDS: INSULIN ASPART 100 UNITS/ML 3 ML PEN SC SCH ×2 (08:44→12:48)
[2019-02-23] MEDS: SODIUM CHLORIDE 0.45 % 1,000 ML IV SCH (09:43)
--- NOTE | 2019-02-23 10:20 | Electrocardiogram Report ---
Test Reason : Blood Pressure : / mmHG Vent. Rate : 068 BPM Atrial Rate : 068 BPM P-R Int : 160 ms QRS Dur : 088 ms QT Int : 448 ms P-R-T Axes : 058 067 069 degrees QTc Int : 476 ms Normal sinus rhythm Normal ECG When compared with ECG of 22-FEB-2019 06:38, Premature atrial complexes are no longer Present Confirmed by Nathaniel Shane ([id number]) on 02/23/2019 10:20:11 AM Referred By: REFERRED SELF Confirmed By:Nathaniel Shane
[2019-02-23 11:54] LABS: Calcium 8.9 mg/dl (8.5-10.1); Creatinine Clr Calc Pharmacy 34.8 ml/min; Est GFR (African American) 55.7; Est GFR (Non-African American) 48.1; Potassium 3.9 mmol/L (3.5-5.1)
--- NOTE | 2019-02-23 15:43 | Discharge Summary ---
Date of Service February 23, 2019 Admission HPI Per Admitting Provider 78 y/o F c/o LE weakness, swelling, and pain. This has been an ongoing issue for pt for the last several months. She has been to [facility] twice and does well there. She is d/c'd to home and after about 2 weeks her issues return. Granddaughter states that the LE issues were worse the last 3 days. She put on compression stockings yesterday and the swelling is better. Pt states that she has been very shaky the last few days and cannot walk well. She fell twice in the last 24 hours. Pt has ongoing home PT services since her last d/c from [facility], which was on 02/07. Pt has been having issues with worsening constipation. Since her d/c from [facility] on 02/07, she has only had one bowel movement. Granddaughter has been giving her MOM, ducolax, and prunes, but this does not improve. She has abd fullness due to this. She has no issues with urination and feels she is urinating at a regular amount. Pt states she has been having occasional substernal chest pains over the last few days. This is new for her. No radiation. She is mostly at rest due to her LE and back pain and this happens at rest generally. She does not take anything for this. Pt was put on meloxicam about 2 months ago for back pain. Granddaughter states that this is not helping her much despite daily use. The prescription will run out in 2 days and she was not planning to refill it. Pt denies fever, SOB, n/v. Pt was not having diarrhea prior to coming to the ED, however she was given kayexalate in the ED and is now having loose stools. Granddaughter states that pt's last name is Ney. She states that this is what all of her medical records are listed under, including her insurance card. Upon arrival to the ED today, pt presented [place] license, as issued by [place]. In [place], your last name is your maiden name + your mother's name, and this is apparently how DL are issued despite your legal last name. Daughter states she explained this to the triage secretary to the vice president, however pt's name was changed to match her DL in the system. Pt and granddaughter would like this changed back to [place] as all of her health records at other facilities are under that name and she has not changed her name. Principal Diagnosis Pt is doing much better overall. She still feels weak and shaky with ambulation, but better. Still requires some assistance. LE swelling is fully resolved. Tolerating PO without issue. Pt denies fever, SOB, chest pain, abd pain, n/v/c/d. Lidoderm patch has resolved L flank pain. Still has not had a bowel movement since she had several on DOA with kayexalate. Discharge Exam Constitutional WD/WN, vitals as above Eyes normal visual wagner by confrontation and + anicteric sclerae Neck normal visual inspection and trachea midline Respiratory normal respiratory effort, lungs clear to auscultation Cardiovascular Rate/Rhythm: regular rate and regular rhythm Gastrointestinal (Abdomen) Inspection/Auscultation: + abdomen distended Percussion/Palpation: abdomen soft; abdomen nontender Musculoskeletal Head/Neck/Chest: normocephalic and head atraumatic neg for LE swelling Skin no rashes, warm and dry Neurologic awake; not confused Speech / Cognition: normal speech Psychiatric A+Ox3, euthymic affect Discharge Data Allergies Allergy/AdvReac Type Severity Reaction Status Date / Time No Known Drug Allergies Allergy Unknown Verified 02/21/19 13:17 Consultations 02/21/19 14:18 ED Decision to Admit Stat 02/21/19 16:24 Consult Case Management - Discharge Planning Routine Ordered Studies 02/22/19 16:24 US renal/blad retro comp Routine Hospital Course (1) Hyperkalemia: Likely related to recent constipation in the setting of meloxicam use Holding meloxicam on d/c Kayexalate in the ED with repeat K WNL, 3.9 on d/c EKG neg for changes Seem likely the cause of more intense LE shaking, possibly contributing to pain (2) ARF (acute renal failure): Uncertain etiology, but possibly also related to meloxicam use in the setting of constipation Holding nephrotoxic agents Baseline cr 1.2, 1.6 on admission and improved s/p gentle IVF Cr WNL on d/c at 1.1 Renal US neg UA neg (3) Weakness: Likely related to hyperkalemia in the setting of deconditioning PT/OT recs for SNF, pt accepted to rehab Recent [facility] stays x2 Falls x2 in 24 hrs prior to admission Granddaughter (primary caregiver) states that pt does quite well at [facility], but this only lasts 2-3 days upon d/c to home. Granddaughter works second time worker and other adults in the home have health/MSK issues that prevent them from assisting pt to keep mobile. To consider once pt is stable for d/c from [facility]: Per Yazmin (granddaughter): Pt came here from [place] and plans were for her to live with granddaughter's cousin. Cousin "had a breakdown" and pt could not stay with her any longer, so she moved in with Yazmin. "I was not able to prepare for her to move in at all. It just happened." Yazmin currently lives in a town home which she rents and cannot modify. Pt cannot navigate stairs and is limited to downstairs only, which has only a 1/2 bath. There is home PT and N ([facility]) coming, but pt is "stuck in the house" all day as Yazmin works second time worker. Also living in the home are Yazmin's parents who have limited mobility due to MSK issues. They stay upstairs most of the day and are not able to assist pt due to their own MSK issues. Yazmin's brother has mental issues and is living with her also. He has two daughters who live with their mother, but are in the home for a few hours after school daily. Yazmin also has her own son living with her. Pt is and her (in his 80s), was her primary caregiver when she lived in [place]. He attempted relocation to live with his son in [place], however this did not work out and he is back in [place]. Pt has no plans to return to [place]. Her is planning to move here at some point when able. Yazmin feels that she is really struggling to take care of all of these people who are dependent on her. She in not able to modify her townhouse given she is renting, so handicap access will not be available for pt. Yazmin states pt is very social and did enjoy being at rehab once she got there due to activities and interaction. She comes home and is able to ambulate better for about 2-3 days, then starts to decline again. Home PT is 2x/week. There is discussion that pt may need termite control servicer placement given above. Yazmin is aware of this and is open to it if needed. 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 Monitor (6) Diabetes: Holding metformin for renal function during admission, will resume now that renal function WNL A1c 9.3 Add trulicity on discharge to help with better management She will need first dose upon arrival to [facility] May also help with constipation issue (7) Diabetic neuropathy: Gabapentin, continue Recent increase last month (8) Hyperlipemia: Resume statin (9) Hypertension: continue home meds (10) GERD (gastroesophageal reflux disease): continue home meds (11) H/O: stroke: Plavix, continue (12) DVT prophylaxis: Heparin for DVT proph during admission Total Time Total Time Spent Total Time Spent (In Minutes): >30 Total Time Includes: Examination of the Patient, Discharge Planning, Medication Reconciliation and Other Discharge Plan Discharge Items Patient Disposition: Transfer Inpatient Rehab Fac Reason For Visit: HYPERKALEMIA Discharge Diagnosis: hyperkalemia with acute renal failure Activity: Resume your previous activity Non-emergency contact: Primary Care Provider Call non-emergency contact if: you have any medication questions, your symptoms worsen and your pain is not controlled Follow-up/Referrals: Francisco Olmstead, [Primary Care Provider] - Diet: Carb Consistent or DM2 Addtl Attending Provider Instructions: Goal of daily bowel movement. DM management appears less than optimal. Starting Trulicity on discharge. Monitor for adverse reactions Pending Studies at Discharge: No Stand-Alone Forms: My [facility] Skilled Items Patient informed of condition?: Yes DNR: No Discharge Level of Care: Acute rehab Communicable Disease: No Discharge Prognosis: Improving Lines: None Urinary Catheter: No Medications and DC Order Prescriptions: New sennosides [Senokot] 8.6 mg Tablet 8.6 mg PO QAM Qty: 30 RF: 1 magnesium hydroxide [Milk of Magnesia] 400 mg/5 mL Suspension 30 ml PO DAILY Qty: 3840 RF: 1 magnesium hydroxide [Milk of Magnesia] 400 mg/5 mL Suspension 30 ml PO Q12H PRN (Reason: constipation) Qty: 3840 RF: 1 Remove Lidoderm Patch 1 ea N/A DAILY@2100 Qty: 30 RF: 1 Lactobacillus acidophilus 10 billion cell capsule 1 cell PO DAILY Qty: 30 RF: 1 Trulicity 0.75 mg/0.5 mL pen injector 0.75 mg SQ .weekly Qty: 2 RF: 1 Continued alprazolam [Xanax XR] 0.5 mg tablet extended release 24 hr 0.5 mg PO HS RF: 0 quetiapine [Seroquel] 25 mg tablet 25 mg PO HS RF: 0 rivastigmine tartrate 1.5 mg capsule 1.5 mg PO BID RF: 0 omeprazole 20 mg tablet,disintegrat, delay rel 20 mg PO DAILY PRN (Reason: Stomach Upset) RF: 0 clopidogrel [Plavix] 75 mg tablet 75 mg PO DAILY RF: 0 lisinopril 5 mg Tablet 5 mg PO DAILY RF: 0 tramadol 50 mg Tablet 50 mg PO Q4H PRN (Reason: Pain) RF: 0 metformin 500 mg tablet extended release 24 hr 1,000 mg PO BID RF: 0 lidocaine 5 % adhesive patch,medicated 1 patch TOP DAILY Qty: 30 RF: 0 gabapentin 400 mg capsule 400 mg PO BID RF: 0 gabapentin 300 mg capsule 300 mg PO BID RF: 0 Discontinued enalapril maleate 10 mg tablet 10 mg PO DAILY RF: 0 Discharge Orders: Discharge Order (Routine); Ordered 02/23/19 Ordered By: Lindsay Keys/Other Patient Handouts: Diabetes Fruit Grader Complications, Diabetes Resources, Diabetes Type 2 Coping, Diabetes Healthy Meals, Diabetes Carbs, Diabetes Exercise Benefits, Diabetes Activity Tips, Diabetes Living Life, Diabetes Manage A1C Test Admission Data Admit Date/Time: 02/21/19 15:37 Attending Provider: Lindsay Lombardo Admit Provider: Lindsay Lombardo Primary Care Provider: Francisco Olmstead Other Providers: [facility],Health ; [facility],Home Healthcare ; Lindsay Lombardo
== END 2019-02-23 16:54 | DRG 641 ==
LOC: ED 11:35 → 2W 15:37